=== PATIENT | female | born 2000 | race Caucasian/White ===

== ENCOUNTER 2024-07-10 12:57 | Emergency (ER) | payer BC, SELFPAY ==
--- NOTE | ~2024-07-10 | XR_ITS ---
CLINICAL HISTORY: fall, pain 3 view, pelvis and right hip Comparison: None Findings: No acute fracture or dislocation. No significant arthritic change. The soft tissues are unremarkable. IMPRESSION: No acute findings. This document has been electronically signed by: Nancy Aguero MD on 07/10/2024 19:46:02
--- NOTE | ~2024-07-10 | CT_ITS ---
CLINICAL HISTORY: bucked off horse, landed on low back tailbone CT lumbar spine without contrast Comparison: None Findings: Vertebral alignment is within normal limits. Mild compression fracture of the T12 involving the superior endplate. There is a linear lucency of the posterior sacrum at the level of S3 best visualized on the sagittal view image 40 series 8. Mild angulation of the S3. The coccyx is not included. No significant degenerative change. Visualized abdominal contents unremarkable. IMPRESSION: Mild compression fracture of the T12 vertebral body is likely to be acute. Linear lucency of the posterior sacrum and mild angulation of S3. Acute nondisplaced fracture can not be excluded. The coccyx is not included on the current examination. This document has been electronically signed by: Nancy Aguero MD on 07/10/2024 17:59:08
[2024-07-10 13:06] VITALS: BP 120/80; PULSE 80; O2SAT 100; BMI 18.3
[2024-07-10 13:10] VITALS: BP 123/86; PULSE 63; RESP 18; TEMP 36.6; O2SAT 99
--- NOTE | 2024-07-10 13:17 | ED_ITS ---
HPI - Fall General Chief Complaint: Fall Stated Complaint: fell 4-5ft from horse, lower back to hip pain Time Seen by Provider: 07/10/24 13:53 Source: patient and EMS Mode of arrival: EMS Limitations: no limitations History of Present Illness ED Provider: CHRISTINE RAI PA-C HPI Narrative: 23 year old female presents to the ED today via EMS for evaluation of low back pain after falling off of her horse [employer] in ED. Patient's friend who witnessed accident is at bedside to assist with history. Per patient, she was bucked off of the side of her horse, causing her fall approximately 3-4 feet, landing on her lower back/ tailbone. Denies head strike or LOC. Not on anticoagulation. She reports immediate pain to the area with radiation up her spine. Pain does not radiate to her lower extremities. She was unable to stand or ambulate. The facility called EMS who transferred patient to stretcher. She denies hx of IVDU. No hx of spinal surgery. Denies numbness/tingling/weakness of the LEs, saddle anesthesia, bowel or bladder incontinence or retention. Denies chance of - has IUD in place. Patient presents in cervical collar however denies any neck pain. She did not strike her head. Related Data Previous Rx's ?Medication ?Instructions ?Recorded lidocaine 5 % topical patch 1 patch topical DAILY #15 ea 07/10/24 (Lidoderm) oxycodone 5 mg tablet 5 mg PO Q6H PRN pain #10 tabs 07/10/24 Allergies Allergy/AdvReac Type Severity Reaction Status Date / Time buspirone [From BuSpar] Allergy Unknown Verified 07/10/24 13:08 Review of Systems 2 Review of Systems: Constitutional: No fever, chills, fatigue, night sweats, weight changes ENT/Mouth: No ear pain, hearing loss, nasal congestion, sinus pain, rhinorrhea, sore throat Eyes: No eye pain, swelling, redness, vision changes, discharge Cardio: No chest pain, palpitations, ARMENTA, orthopnea, peripheral edema Pulm: No SOB, cough, sputum, wheezing, dyspnea, hemoptysis GI: No nausea, vomiting, hematemesis, abdominal pain, diarrhea, constipation, hematochezia, melena : No irregular bleeding, dysuria, frequency, urgency, hesitancy, hematuria, flank pain, urinary flow changes, urinary incontinence or retention MSK: No neck pain, joint pain, myalgias, +back pain Skin: No lesions, rashes Neuro: No weakness, numbness, paresthesias, LOC, dizziness, headache Psych: No anxiety/panic, depression, SI/HI, AH/VH All other systems reviewed and are negative. [facility], [facility] Past Medical History Attestation statement: The following information was validated with the patient. Source: old records reviewed and nursing notes reviewed Social History Social History Alcohol intake: current Alcohol intake frequency: a few times a week Smoked in Last 30 Days: Yes Use of substances other than those prescribed or required for medical reasons: No Advance Directives: No Advance Directives Information Provided: Yes Do you have a plan to hurt others: No Plan Patient : No Physical Exam 2 Vital Signs: Vital Signs: Last Vital Signs Temp 98.4 F 07/10/24 21:55 Pulse 92 07/10/24 21:55 Resp 18 07/10/24 21:55 BP 109/72 07/10/24 21:55 Pulse Ox 98 07/10/24 18:25 O2 Del Method Room Air 07/10/24 18:25 BMI result Body Mass Index 18.3 Vital signs stable General: Well appearing, in no acute distress. Skin: Warm, dry, intact. No rashes or lesions. Head: Normocephalic, atraumatic. No raccoon eyes, ca sign. EENT: Hearing is intact b/l. Conjunctiva clear. Sclera is anicteric. PERRLA. EOM intact. Moist mucous membranes.? Neck: Supple without LAD Cardiac: Chest wall symmetric. RRR. Lungs: Normal respiratory effort without accessory muscle use. CTA bilaterally. Abdomen: Soft, non-tender, non-distended. No rebound tenderness or guarding. Back: +pelvis intact. no noted pain w/ anterior/lateral/posterior compression. no overlying skin changes. ttp along midline lumbar spine (T10/T11) without palpable step off. ttp along right lumbar paraspinal musculature without palpable deformity or creptius. minimal lower back pain w/ straight leg raise off bed bilaterally. Ext: Upper and lower extremities atraumatic, without tenderness, deformity, swelling or erythema. Full ROM throughout. Neuro: AOx3. Normal speech. Strength 5/5 intact throughout. No saddle anesthesia. Sensation intact to light touch. NV intact distally. Reflexes 2+ bilaterally. gait not assessed d/t pain. Psych: Appropriate mood and affect. Responds appropriately to questions. Course Course Course Narrative: 1619 -- CBC/ chem unremarkable. hcg negative. she has received tylenol, toradol and lido patch for pain control. CT pending. she is stable at the end of my shift. sign out given to NICHOLAS sims. Reevaluation(s) Reevaluation #1: IMPRESSION: CT lumbar spine Mild compression fracture of the T12 vertebral body is likely to be acute. Linear lucency of the posterior sacrum and mild angulation of S3. Acute nondisplaced fracture can not be excluded. The coccyx is not included on the current examination. XR of the pelvis was obtained to exclude additional pelvic fracture given location of pain which negative 3 view, pelvis and right hip IMPRESSION: No acute findings. Reviewed with patient and father conservative treatment, worrisome signs and symptoms that would warrant re-evaluation emergency department, outpatient follow-up with primary care provider. Ambulatory slow steady gait. Medications Administered Discontinued Medications Generic Name Dose Route Start Last Admin Trade Name Freq PRN Reason Stop Dose Admin Acetaminophen 975 mg 07/10/24 14:19 07/10/24 14:41 Acetaminophen 325 Mg Tablet PO 07/10/24 14:20 975 mg ONCE ONE Administration Acetaminophen 975 mg 07/10/24 21:40 07/10/24 21:48 Acetaminophen 325 Mg Tablet PO 07/10/24 21:41 975 mg ONCE STA Administration Ketorolac Tromethamine 30 mg 07/10/24 15:56 07/10/24 16:32 Ketorolac Tromethamine 30 Mg/Ml Vial IM 07/10/24 15:57 30 mg ONCE ONE Administration Lidocaine 1 patch 07/10/24 14:19 07/10/24 16:32 Lidocaine 4 % Patch Adh..Patch TRANSDERMA 07/10/24 14:20 1 patch ONCE ONE Administration Protocol Oxycodone HCl 5 mg 07/10/24 21:40 07/10/24 21:48 Oxycodone Hcl Immed Release 5 Mg Tablet PO 07/10/24 21:41 5 mg ONCE STA Administration Medical Decision Making Medical Decision Making MDM Narrative: 23 year old female presents to the ED today via EMS for evaluation of low back pain after falling off of her horse [employer] in ED. vital signs are stable. she is nontoxic appearing and in NAD. on exam, pelvis intact. no noted pain w/ anterior/lateral/posterior compression. no overlying skin changes. ttp along midline lumbar spine (T10/T11) without palpable step off. ttp along right lumbar paraspinal musculature without palpable deformity or creptius. minimal lower back pain w/ straight leg raise off bed bilaterally. NV intact distally. gait not assessed at this point d/t patient's pain. Differential includes msk contusion, fracture, subluxation. Unlikely cord compression, cauda equina. Plan for basic labs/ preg, imaging, pain control and re-evalaution. 07/10/2020 at 21:37 hours, Dr. Pieter Lara's attending physician note: Patient is a 23-year-old female who presents emergency department for evaluation of injuries from falling off a horse. 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 The horse reared up on its hind legs causing the patient to fall proximally3- 5 ft off the horse. Patient states she landed on her buttocks. She states she had immediate pain in her back and was unable to get up. Patient was placed on a stretcher and transported to emergency department by ambulance. I did review the SUDHAKAR's notes. I did review the radiologist's impression of the CT scan of her lumbar spine without contrast. Radiologist noted a mild compression fracture of the T12 vertebrae with a linear lucency of the posterior sacrum and angulation of S3. X-rays of the patient's pelvis revealed no acute fractures. Exam: General: Awake, alert in no distress Head: Normocephalic, atraumatic EENT: PERRL, Lids normal, sclera normal, conjunctiva normal, nose normal , ears normal, throat without erythema or exudates Neck: Supple, no adenopathy, no C-spine tenderness Lung: breath sounds symmetric, no wheezing, rales or rhonchi Chest: symmetric movement, nontender Heart: regular rate and rhythm, normal S1, S2 no murmurs or rubs Abdomen: soft, non-tender, nondistended, normal bowel sounds Back: Patient does have some tenderness with the palpation over the lower thoracic and upper lumbar vertebrae, no ecchymosis or discoloration noted in this area, she does have mild to moderate tenderness palpation over her paraspinal muscles in the lower thoracic and lumbar areas. She had negative straight leg raises bilaterally Extremities: no deformities, moves all extremities symmetrically Neuro: Cranial nerves 2-12 are intact Strength: Symmetric in both the upper and lower extremities, patient was able to stand and walk without any difficulty Reflexes: Patient was 2+ patella and ankle reflexes, symmetric Sensory: Patient has normal light touch bilaterally Impression /medical decision making: The patient's findings are consistent with mild compression fracture of the T12 and possible linear fracture of the posterior sacrum and possible S3 fracture. The CT scan did not include the coccyx bones however a coccygeal fracture would be treated no differently than a linear sacral fracture ,therefore coccygeal films were not obtained. The patient's pelvic x-rays did not reveal any acute fracture which is reassuring. Based on her exam I doubt that she has a pelvic fractures since she was able to stand and walk without difficulty. The patient's neurologic exam was unremarkable. She had normal lower extremity strength, sensory exam and normal reflexes. Patient was able to sit on the stretcher, stand and walk without any difficulty. Therefore I believe that her pain is consistent with a mild compression fracture of T12 with no significant injury to the vertebral body, retropulsion or spinal cord contusion. I did discuss my impression and findings with the patient and the patient's father. Patient was advised to take Tylenol and ibuprofen for pain and for pain not relieved by these medications she was prescribed oxycodone. Prior to discharge she was given Tylenol 975 mg orally and oxycodone 5 mg orally for her pain grew. She was also advised to apply ice to her lower back 4 to 6 times a day for at least 15 minutes for the next 3-4 days. I told the patient that the recovery time could be 4-6 weeks and that she should not get back on a hoarse or do exercise until she was medically cared by her PCP. Differential Diagnosis Differential Diagnoses: The differential diagnosis associated with the presentation includes as above. Admission/Observation not indicated. Lab Data MDM Lab Attestation statement: I reviewed the patient's lab results. as above. 07/10/24 14:47 07/10/24 14:47 Labs: Lab Results 07/10/24 Range/Units 14:47 WBC 8.0 (4.8-10.8) X10*3/uL RBC 4.52 (4.20-5.50) X10*6/uL Hgb 14.2 (12.0-16.0) g/dl Hct 41.0 (37.0-47.0) % MCV 90.7 (80.0-98.0) fL MCH 31.4 (27.0-33.0) pg MCHC 34.6 (31.0-35.0) g/dl RDW 11.7 (11.0-16.0) % Plt Count 188 (160-400) X10*3/uL MPV 10.0 (9.4-12.3) fL Immature Gran % (Auto) 1.1 H (0.0-0.4) % Neut % (Auto) 82.6 H (45-73) % Lymph % (Auto) 11.7 L (20-40) % [place] % (Auto) 4.2 (2-11) % Eos % (Auto) 0.2 (0-4) % Baso % (Auto) 0.2 (0-2) % Lymph # (Auto) 0.9 L (1.2-4.9) X10*3/uL [place] # (Auto) 0.3 (0.1-1.2) X10*3/uL Eos # (Auto) 0.0 (0.0-0.4) X10*3/uL Baso # (Auto) 0.0 (0.0-0.2) X10*3/uL Abs Immat Gran (auto) 0.09 H (0.00-0.03) X10*3/uL Absolute Neuts (auto) 6.6 (2.0-8.3) x10*3/uL Absolute Nucleated RBC 0.000 (0.0-0.012) X10*3/uL Nucleated RBC % (auto) 0.0 (0.0-0.2) /100WBC PT 11.6 (10.9-12.4) SEC INR 1.0 (0.9-1.1) Sodium 143 (135-145) mmol/L Potassium 3.5 (3.3-5.1) mmol/L Chloride 108 (96-108) mmol/L Carbon Dioxide 26 (22-29) mmol/L Anion Gap 13 (12-20) BUN 7 L (9-16) mg/dL Creatinine 0.75 (0.5-1.4) mg/dL Estim Creat Clear Calc 93.4 Estimated GFR > 60 Random Glucose 80 (60-115) mg/dL Calcium 9.5 (8.4-10.2) mg/dL Total Bilirubin 0.6 (0.0-1.0) mg/dL AST 34 H (5-31) U/L ALT 20 (0-31) U/L Alkaline Phosphatase 38 L (39-117) U/L Total Protein 7.9 (6.5-8.0) g/dL Albumin 4.6 (3.5-5.0) g/dL Beta HCG, Quant < 2 mIU/mL Independent Interpretation I performed an independent interpretation of an: CT Scan Radiology Impression Discussion of test interpretation with radiology: I have reviewed the radiologist's reading. Radiologist Impression: CT lumbar spine without contrast Comparison: None Findings: Vertebral alignment is within normal limits. Mild compression fracture of the T12 involving the superior endplate. There is a linear lucency of the posterior sacrum at the level of S3 best visualized on the sagittal view image 40 series 8. Mild angulation of the S3. The coccyx is not included. No significant degenerative change. Visualized abdominal contents unremarkable. IMPRESSION: Mild compression fracture of the T12 vertebral body is likely to be acute. Linear lucency of the posterior sacrum and mild angulation of S3. Acute nondisplaced fracture can not be excluded. The coccyx is not included on the current examination. This document has been electronically signed by: Nancy Aguero MD on 07/10/2024 17:59:08 3 view, pelvis and right hip Comparison: None Findings: No acute fracture or dislocation. No significant arthritic change. The soft tissues are unremarkable. IMPRESSION: No acute findings. This document has been electronically signed by: Nancy Aguero MD on 07/10/2024 19:46:02 Independent Historian Clinical information obtained from an independent historian. History obtained from or confirmed by: Parent (dad) External Record Review External record reviewed: Inpatient record Prescription Management I considered prescription management with: Pain Medication Social Determinants Patient?s care significantly limited by Social Determinants of Health including: Other Social Determinant of Health Critical Care Time Critical Care Time Critical Care Time: No Discharge Plan Discharge Clinical Impression: Compression fracture of thoracic vertebra, Closed sacral fracture Patient Disposition: Home, Self-Care Instructions: Vertebral Compression Fracture (ED), Sacral Fracture (ED) Additional Instructions: As discussed, imaging today reveals that you have a T12 vertebrae compression fracture and an S3 sacral fracture. X-ray of the pelvis did not reveal any pelvic fractures. You can take ibuprofen 200 mg, 3 tablets (600mg) every 6-8 hours as needed for pain, in addition to Tylenol 500 mg, 2 tablets (1,000mg) every 4-6 hours as needed for pain, but not to exceed 3 doses daily (3,000mg).? For pain unrelieved by either of the above, I have sent a short prescription for oxycodone to the pharmacy. This is a narcotic medication it does have addictive potential to is, use only as needed for severe pain unrelieved by the above. It may make you drowsy. You should not drive, drink alcohol, or work while taking this medication. You may apply Lidoderm patches as well to area of pain it may be left on for 12 hours but she would be remove for 12 hours to prevent skin irritation Please contact your primary care provider to arrange for a follow-up visit. You may return to emergency department new or worsening symptoms or concerns which includes but is not limited to numbness and tingling of the lower extremities, legs feeling weak, having accidents where your urinating or moving your bowels without realizing that it is occurring, worsening pain not managed at home. It is important that you rest over the next few days, avoid any physical activity, you will want to purchase an [id number] donut pillow, typically it is a cushioned or air-filled pillow with the center cut out with the appearance of a doughnut to take the pressure off of your sacrum while you are sitting. You may require physical therapy after the next week if you continue to pain. Prescriptions: New lidocaine [Lidoderm] 5 % adhesive patch,medicated 1 patch topical DAILY Qty: 15 0RF Rx Instructions: leave on most painful area for up to 12 hrs oxycodone 5 mg tablet 5 mg PO Q6H PRN (Reason: pain) Qty: 10 0RF Rx Instructions: Partial Fill upon patient request. Referrals: Physician,Unknown J [Primary Care Provider] - Interventions: ED Discharge Assessment Last Done: 07/10/24 21:55 Discharge Date/Time: 07/10/24 21:56 Print Language: Romansh
[2024-07-10] MEDS: Acetaminophen 325 MG TABLET 975 MG PO ×2 (14:41→21:48)
--- OUTSIDE RECORDS SUMMARY | 2024-07-10 14:41 | XMS_ITS | Encounter Summary ---
Author Organization [facility] Address [phone] [address] [place] [address] Care Team Providers Care Shelf Filler Name Role Phone Karen Hallman MD Primary Care Provider [phone] Omar Floyd NP Primary Care Provide r Encounter Details Date Type Department Care Team (Latest Contact Info) Description 03/05/2019 Ancillary Orders Virtual Department [address] [place] [address] Karen Mg NP [address] [facility] [address] [place] [address] Abdominal pain, unspecified abdominal location; Vomiting, intractability of vomiting not specified, presence of nausea not specified, unspecified vomiting type Social History Tobacco Use Types Packs/Day Years Used Date Smoking Tobacco: Never Assessed Sex and Gender Information Value Date Recorded Sex Assigned at Female 11/26/2022 1:13 PM EDT Gender Identity Female 11/26/2022 1:13 PM EDT Sexual Orientation Don't know 05/18/2024 1: 31 PM EST Sexual Orientation Straight 05/18/2024 1: 31 PM EST documented as of this encounter Plan of Treatment Not on file documented as of this encounter Results * US ABDOMEN LIMITED APPENDIX (ADULT) (03/05/2019 10:32 AM EDT) Anatomical Region Laterality Modality Abdomen Ultrasound 03/05/2019 10:3 6 AM EDT Impressions 03/05/2019 10:41 AM EDT No explanation for right lower quadrant pain. The appendix is not visualized. No secondary signs of acute appendicitis. Clinical follow-up recommended. POS - [id number] Narrative 03/05/2019 10:41 AM EDT HISTORY: COMPARISON: FINDINGS: A limited abdominal ultrasound of the right lower quadrant is performed. No evidence of masses or focal fluid collections. The appendix is not visualized. The right ovary is small and normal in echogenicity measuring 2.7 cm x 2.07 m x 1.6 cm. A few tiny follicles are visible within the ovary. Duplex Doppler scanning of the ovary demonstrates normal arterial and venous blood flow. Procedure Note Kennedy Samano MD - 03/05/2019 HISTORY: COMPARISON: FINDINGS: A limited abdominal ultrasound of the right lower quadrant is performed. No evidence of masses or focal fluid collections. The appendix is notvisualized. The right ovary is small and normal in echogenicity measuring2.7 cm x 2.07 m x 1.6 cm. A few tiny follicles are visible within theovary. Duplex Doppler scanning of the ovary demonstrates normal arterialand venous blood flow. IMPRESSION: No explanation for right lower quadrant pain. The appendix is notvisualized. No secondary signs of acute appendicitis. Clinical follow-uprecommended. POS - [id number] Karen Mg NP IMG US ABDOMEN documented in this encounter Visit Diagnoses Diagnosis Abdominal pain, unspecified abdominal location Vomiting, intractability of vomiting not specified, presence of nausea not specified, unspecified vomiting type Abdominal pain, unspecified abdominal location Vomiting, intractability of vomiting not specified, presence of nausea not specified, unspecified vomiting type documented in this encounter Care Teams Shelf Filler Relationship Specialty Start Date End Date Karen Hallman MD [address] [place] [id number] PCP - General Pediatrics 03/05/19 03/21/24 Omar Floyd NP [address] [place] [id number] PCP - General Nurse Practitioner 03/22/24 documented as of this encounter Additional Source Comments The information contained in this document represents components of the legal health record. It is not the complete legal health record.[facility]
--- OUTSIDE RECORDS SUMMARY | 2024-07-10 14:41 | XMS_ITS | Encounter Summary ---
Author Organization [facility] Address [phone] [place] [id number] Care Team Providers Care Inside Sales Account Representative Name Role Phone Omar Floyd NP Primary Care Provide r Encounter Details Date Type Department Care Team (Late st Contact Info) Description 06/12/2024 Telephone [facility] [address] [place] [address] Lesli Martinez MD [address] [facility], [address] [place] [address] [email or web address] Social History Tobacco Use Types Packs/Day Years Used Date Smoking Tobacco: Never Smokeless Tobacco: Never Alcohol Use Standard Drinks/Week Comments Yes 0 (1 standard drink = 0.6 oz pur e alcohol) Education Answer Date Recorded Are you interested in more education? Not on heydi e 09/24/2022 Are you concerned about learning? Not on file 09/24/2022 No 09/24/2022 No 09/24/2022 Digital Access Answer Date Recorded No 10/22/2022 No 10/22/2022 Reliable internet access at home? Not on file 10/22/2022 Device with a working camera? Not on file Sex and Gender Information Value Date Recorded Sex Assigned at Female 11/26/2022 1:13 PM EDT Gender Identity Female 11/26/2022 1:13 PM EDT Sexual Orientation Don't know 05/18/2024 1: 31 PM EST Sexual Orientation Straight 05/18/2024 1: 31 PM EST documented as of this encounter Progress Notes * Eloina Livingston - 06/13/2024 2:37 PM EST Spoke w pt regarding scheduling their US and FUV w RP. 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 * Cortney Carbone - 06/12/2024 12:04 PM EST Duplicate encounter TE in Results Basket already Pt is on the U/[place] list * Lesli Martinez MD - 06/12/2024 12:02 PM EST Please contact to schedule the US that was ordered on Apr, thanks lesli Mota documented in this encounter Plan of Treatment Not on file documented as of this encounter Visit Diagnoses Not on filedocumented in this encounter Care Teams Inside Sales Account Representative Relationship Specialty Start Date End Date Omar Floyd NP [address] [place] [id number] PCP - General Nurse Practitioner 03/22/24 documented as of this encounter Additional Source Comments The information contained in this document represents components of the legal health record. It is not the complete legal health record.[facility]
--- OUTSIDE RECORDS SUMMARY | 2024-07-10 14:41 | XMS_ITS | Encounter Summary ---
Author Organization [facility] Address [phone] [place] [address] Care Team Providers Care Videogame Tester Name Role Phone Karen Hallman MD Primary Care Provider [phone] Omar Floyd NP Primary Care Provide r Encounter Details Date Type Department Care Team (Latest Contact Info) Description 03/05/2019 Ancillary Orders Virtual Department [address] [place] [address] Karen Mg, NICHOLAS [address] [facility] [address] [place] [address] Abdominal pain, unspecified abdominal location; Vomiting, intractability [...] documented as of this encounter Visit Diagnoses Diagnosis Abdominal pain, unspecified abdominal location Vomiting, intractability of vomiting not specified, presence of nausea not specified, unspecified vomiting type documented in this encounter Care Teams Videogame Tester Relationship Specialty Start Date End Date Karen Hallman MD [address] [place] [address] PCP - General Pediatrics 03/05/19 03/21/24 Omar Floyd NP [address] [place] [address] PCP - General Nurse Practitioner 03/22/24 documented as of this encounter Additional Source Comments The information contained in this document represents components of the legal health record. It is not the complete legal health record.[facility]
--- OUTSIDE RECORDS SUMMARY | 2024-07-10 14:41 | XMS_ITS | Clinical Summary ---
Author Organization [facility] Address [address] [place] [phone] Phone Care Team Providers Care Regulatory Compliance Coordinator Name Role Phone Unavailable Primary Care Provider Unavailabl e Allergies Active Allergy Reactions Criticality Noted Date Comments Buspirone Hives,Itching,Rash Low 01/22/2021 Drospirenone-Ethinyl Estradiol Hives,Itching,Rash,Swellin g Low 11/27/2022 Medications norgestimate-eth inyl estradiol 0.25-35 MG-MCG per tablet Take 1 tablet by mouth daily. 12/01/2022 Active buPROPion XL 300 MG 24 hr tabletIndication s:Depression, unspecified depression type Take 1 tablet (300 mg total) by mouth daily. 90 tablet 1 09/02/2023 Active FLUoxetine 10 MG capsuleIndicatio ns:Depression, unspecified depression type Take 1 capsule (10 mg total) by mouth once daily. 90 capsule 1 09/02/2023 Active buPROPion 75 MG tabletIndication s:Depression, unspecified depression type Take 1 tablet (75 mg total) by mouth 2 (two) times a day. 60 tablet 09/06/2023 Active Active Problems Problem Noted Date Diagnosed Date Depression, unspecified 02/18/2023 Assessment & Plan (09/02/2023 2:03 PM EDT): Reordered FLuoxetine 10mg capsule daily and bupropion XL 300mg daily. Will start with Bupropion for a week or so before restarting fluoxetine. She would like a longer period to assess if helpful. Plan on f/u at her E in January. Assessment & Plan (05/16/2023 11:28 AM EST): Given the persistent moderate depression despite Bupropion 300mg XL daily, will add Fluoxetine 10mg daily. She would like to continue the Bupropion. Also recommended meeting with Lynnette for therapy and possible bridge. She will schedule. Assessment & Plan (03/25/2023 10:33 AM EDT): On Bupropion XL 150mg daily with no change in symptoms Also has not tried to find a therapist. Will increase dose to Bupropion XL 300mg daily which was her previous effective dose. Will have Piper send info about how to find a therapist. Regroup in 6-8 weeks. Assessment & Plan (02/18/2023 2:08 PM EDT): Symptoms of depression have returned after stopping Bupropion last September. She feels when she has alone time she is more likely to feel depressed. Denies SI. She thinks she feels better on medication but has a hard time being objective about it. Has had therapy in the past but had variable response to it. She tried [facility] for a while but could not find a good match. She does not feel it is necessary at this time. We did discuss check in with [facility] if needed. Dysuria-frequency syndrome 01/28/2023 Assessment & Plan (02/18/2023 2:08 PM EDT): Less problematic. Has been taking Uro Calm when needed which is helpful. Will schedule f/u with urology. Assessment & Plan (01/28/2023 1:41 PM EDT): We discussed that this does not seem to be consistent with recurrent UTIs but are more likely related to irritation or inflammation with sexual activity or possibly bladder spasms. Recommend referral to [facility]. At this time, will increase fluid intake and try to urinate every 3 hours but no more frequently. Will also try taking pyridium for the 2 days following SA. Will also consider if positions or current lubrication are causing symptoms. Hemorrhoids 03/02/2021 Assessment & Plan (02/18/2023 2:08 PM EDT): Smaller and less bothersome than previous. TMJ tenderness, left 12/11/2020 Assessment & Plan (02/18/2023 2:08 PM EDT): Intermittent symptoms but managing ok. Assessment & Plan (12/11/2020 2:00 PM EDT): Discussed TMJ pain. Discussed treatment typically with symptomatic treatment for pain and reduction in chewing solid foods including ice or gum. She is interested in therapy for this since the pain can be severe at times. Will refer to PT. Consider eval by oral surgeon. Resolved Problems Problem Noted Date Diagnosed Date Resolved Date Acute cystitis without hematuria 03/27/2022 01/28/2023 Overview (03/27/2022): 03/20 >100,000 E.coli. Pansensitive. Treated with nitrofurantoin for 5 days. Assessment & Plan (11/22/2022 2:16 PM EDT): Drink plenty of water. Avoid holding urine. Call for increase in pain, difficulty urinating, blood in urine, fever, back pain, or if no improvement in 2 days. Need for case management follow-up 03/25/2020 07/14/2020 Assessment & Plan (03/25/2020 1:37 PM EDT): Plan for exam, VS, measurements and age appropriate screenings (inlcuding hearing, tympanogram, and urine STI screen) when she returns next month for Depo. Plan for flu shot then as well. Car sickness 03/25/2020 07/14/2020 Assessment & Plan (04/16/2020 1:47 PM EST): Nausea with car ride to school in the mornings. Sometimes get nausea before, in anticipation of car sickness. Possible correlation to her anxiety, which I think is likely. Lacks vomiting, appetite loss, etc. Recommended avoidance of reading and phone in the car. Recommended she speak with Dr. Pennington, as she feels that overall her anxiety management could be better. Awaiting labs for fatigue, will check with Dr. Baker to see if anything should be added on. Will follow-up if no improvement or if symptoms worsen. Assessment & Plan (03/25/2020 1:40 PM EDT): Doing better now. Reviewed some home and OTC measures to help (avoid screens, peppermint gum, OTC medications, etc). Eustachian tube dysfunction, right 05/14/2019 12/11/2020 Assessment & Plan (04/16/2020 1:48 PM EST): Continued popping and muffled sensation. Normal hearing, tympanogram and exam. Will refer to ENT for their input given ongoing complaint. Assessment & Plan (03/24/2020 4:58 PM EDT): Continues to feel some pressure and popping sensations, chronic. Will check exam, hearing test and tympanogram when she comes for her next Depo dose. Consider ENT referral. Assessment & Plan (05/14/2019 1:49 PM EST): Reassured no active infection. Explained natural history. Increase fluids, consider nasal decongestant. Recheck if fever or ear pain is present Fatigue 08/28/2018 07/14/2020 Assessment & Plan (03/24/2020 5:00 PM EDT): Labs were ordered last year, not drawn. Does still feel fatigued even after long night's sleep. Doesn't seem correlated with her mood. Will reorder labs. Assessment & Plan (08/28/2018 6:01 PM EDT): Screening labs ordered. Will notify with results Current moderate episode of major depressive disorder without prior episode 07/24/2018 Assessment & Plan (07/14/2020 10:28 AM EST): Did not feel therapy was helpful or meds. Stopped both and symptoms have largely been resolved. Assessment & Plan (03/25/2020 1:30 PM EDT): Followed by Dr. Pennington. Managed with Wellbutrin and Adderall for ADHD. No therapy, not helpful in the past. Denies safety concerns. Continue management per psychiatry. Assessment & Plan (03/22/2019 5:09 PM EDT): I do not think she has made any improvement. Still difficulty sleeping, feels depressed. I have recommended changing medication. She would like to see a psychiatrist. Reviewed with father, I will have [facility] reach out to the family for assistance in scheduling. Will continue on Fluoxetine for now Assessment & Plan (10/09/2018 6:23 PM EDT): Reviewed options. We decided to have her see [facility] for an evaluation and a few sessions initially. Will keep Fluoxetine the same for now. Reassess in 1 month. Recommend making an appointment to get on the waiting list for a psychiatrist Assessment & Plan (08/28/2018 6:00 PM EDT): Recommend icnreasing fluoxetine to 20 mg. Regroup in 6 weeks. Would do screening forms at that visit Assessment & Plan (07/24/2018 3:19 PM EST): Reviewed with patient and mother. PHQ-9 is positive. I agree with starting antidepressants. Recommend initiating Fluoxetine. 10 mg. Will start with 5mg daily for 1 week. If no side effects increase to 10mg daily. [facility] [place] followup in 1 week. OV in 1 month. I recommend seeing Kellie Jones weekly for therapy Chronic pain of both knees 10/17/2017 0 07/14/2020 Assessment & Plan (07/14/2020 9:35 AM EST): Has exercises from PT which helps. Not doing sport currently. Assessment & Plan (03/22/2019 5:08 PM EDT): Recommend HEP. Handout given with exercises. Followup if not improving Assessment & Plan (10/17/2017 3:58 PM EDT): Recommend referral to PT once season is over. Continue to ice after games and work on good stretching techniques Generalized abdominal pain 03/14/2017 0 10/17/2017 Assessment & Plan (03/14/2017 2:49 PM EDT): Reviewed with patient and mother. Entirely normal exam. History is consistent with increased anxiety. Reviewed insuring adequate sleep, daily exercise and meeting with school counselor to address anxiety. She should followup with any worsening of symptoms. Migraine with aura 2013 Assessment & Plan (03/22/2019 5:07 PM EDT): No current issues noted Encounters Date Type Department Care Team Description 06/05/2024 Refill [facility], [facility] [address] [place] [address] Dara Wilhelm MD Depression, unspecified depression type from Last 3 Months Immunizations Immunization Administration Dates Next Due DTaP 5 11/14/2006, 4,05/10/2003,03/13,01/04/2003 HPV Vaccine 9 Valent 10/17/2017,05/26/2016 Hep A, ped/adol 03/22/2019,10/17/2017 Hep B, ped/adol 08/12/2003,2002,2002 Hib (HbOC) 02/12/2004, 3,03/13/2003,01/04 IPV 11/14/2006, 4,03/13/2003,01/04 Influenza, injectable, quadr ivalent, preservative free 04/11/2020,03/22/2019 MMR 02/12/2004 MMRV 11/14/2006 Meningococcal Conj (Menactra) MCV4P 03/22/2019,1 Pneumococcal Conjugate 05/10/2003,03/13/2003,12/2002 Tdap 03/04/2015 Varicella 11/12/2003 Social History Tobacco Use Types Packs/Day Years Used Date Smoking Tobacco: Passive Smo ke Exposure - Never Smoker Smokeless Tobacco: Never Hunger/Food Answer Date Recorded In the last 12 months, did y ou or your family ever eat less than you felt you should because there wasn't enough money for food? No 02/18/2023 Stable Housing Answer Date Recorded Are you worried that in the next 2 months you may not have stable housing? No 02/18/2023 Transportation Concerns Answer Date Rec orded In the last 12 months, have you or your family ever had to go without healthcare because you didn't have a way to get there? No 02/18/2023 Hazards in Home Answer Date Recorded Think about the place you li ve. Do you have problems with any of the following? Pests (mice or roaches), mold, no/not working smoke detectors, water leaks, no window guards. No 2022 Financing Utilities Answer Date Recorde d In the last 12 months, has t he electric, gas, oil, or water company threatened to shut off your services in your home? No 02/18/2023 Safety at Home Answer Date Recorded Are you or your family worried about feeling saf e in your home? No 02/18/2023 Outside Support Answer Date Recorded Do you feel that you need mo re support from other people or programs to help you care for yourself or your family? No 02/18/2023 Understanding Health Concerns Answer Da te Recorded Do you need help understandi ng your or your child's healthcare needs (diagnosis, medications, plan, etc.)? No 02/18/2023 Financing Health Concerns Answer Date R ecorded In the last 12 months, was t here a time when your child needed to see a doctor or get medications or supplies but could not because of cost? No 02/18/2023 Missing School or Work Answer Date Kyle rded Did you or your child miss s chool or work because of a health problem that could have been avoided? Yes 02/18/2023 Comments No Sex and Gender Information Value Date Recorded Sex Assigned at Female 03/24/2020 4:44 PM EDT Legal Sex Female 4:10 PM EST Gender Identity Female 03/24/2020 4:44 PM EDT Sexual Orientation Not on file Last Filed Vital Signs Vital Sign Reading Time Taken Comments Blood Pressure 110/66 02/18/2023 10:32 AM EDT Pulse 88 02/18/2023 10:32 AM EDT Temperature 36.8 ??C (98.2 ??F) 01/28/2023 11:07 AM E DT Respiratory Rate 22 12/26/2020 2:43 PM EDT Oxygen Saturation 98% 05/18/2021 10:23 AM EST Inhaled Oxygen Concentration - - Weight 54.4 kg (120 lb) 02/18/2023 10:32 AM EDT Height 164.6 cm (5' 4.8 ) 02/18/2023 10:32 AM ED T Body Mass Index 20.09 02/18/2023 10:32 AM EDT Plan of Treatment Health Maintenance Due Date Last Done Comments Men B Vaccine (1 of 2 - Standard) 2018 Influenza Vaccines (#1) 2023 04/11/2020, 03/22 COVID-19 Vaccine ( season) 2024 06/10/2022, 06/04/2021, 10/15/2020, Additional history exists DTaP,Tdap,and Td Vaccines (7 - Td or Tdap) 03/04/2025 03/04/2015, 11/14/2006, 05/13/2004, Additional history exists Pneumococcal Vaccine Aged Out 05/10/2003, 03/13/2003, 01/04/2003 No longer eligible based on patient's age to complete this topic Hepatitis B Vaccines Completed 08/12/2003, 2002, 2002 HIB Vaccines Completed 02/12/2004, 04/29, 03/13/2003, Additional history exists IPV Vaccines Completed 11/14/2006, 10/28, 03/13/2003, Additional history exists MMR Vaccines Completed 11/14/2006, 02/12/2004 Varicella Vaccines Completed 11/14/2006, 11/12/2003 HPV Vaccines Completed 10/17/2017, 05/26/2016 Hepatitis A Vaccines Completed 03/22/2019, 10/18/19 18 Meningococcal Vaccine Completed 03/22/2019, 015 Procedures * Due to [place] Cut[place] law, this organization might not be sharing sensitive test results. Procedure Name Priority Date/Time Associated Diagnosis Comments CHLAMYDIA GC AMP PROBE Routine 11/25/2022 4:23 PM EDT Dysuria from Last 3 Months or Most Recently Relevant to Health Maintenance Results * Due to [place] Cut[place] law, this organization might not be sharing sensitive test results. * CHLAMYDIA GC AMP PROBE (11/25/2022 4:23 PM EDT) Chlamydia Trachomatis, Amplified NEGATIVE (NEG) [facility] Comment: No Chlamydia Trachomatis RNA detected in this patient's sample ? (REFERENCE RANGE/NORMAL VALUE: NOT DETECTED) ? Note: This test uses line maintainer- mediated amplification method to detect rRNA from C. Trachomatis N.GONORRHOEAE AMP PROBE NEGATIVE (NEG) [facility] Comment: No Neisseria Gonorrhoeae RNA detected in this patient's sample ? (REFERENCE RANGE/NORMAL VALUE: NOT DETECTED) ? NOTE: This test uses line maintainer-mediated amplification method to detect rRNA from N.Gonorrhoeae. A negative result does not preclude infection. In the case of a negative urine result, testing of an endocervical(female) or urethral (male) specimen is recommended if there is high clinical suspicion of infection. Due to very high sensitivity of Nucleic Acid Amplification Test, false positive results may occur. Therefore, specimen handling is extremely important. In patients in whom the disease is unlikely, additional sample for testing should be considered after an initial positive result. The performance characteristics of this test have not been evaluated in children. The Aptima Combo2 assay is not intended for the evaluation of suspected sexual abuse or for other medico-legal indications. The ordering provider should assess if the patient had consensual sex without risk of sexual abuse. Consult the [facility] if needed. Contact phone number . Therapeutic failure or success cannot be determined with the Aptima Combo2 assay since nucleic acid may persist following appropriate antimicrobial therapy. The Centers for Disease Control and Prevention (CDC) recommends confirmatory retesting using culture or a different nucleic acid amplification test when positive results occur, if indicated. CHLAM/GC AMP PROBE SPEC TYPE VAGINAL SPECIMEN [facility] Comment: Testing performed or reported by [facility], a Service of [facility], [facility] [place] [address] Ramos Mena MD, Internal Medicine Nurse Practitioner IA# [id number] 11/25/2022 4:23 PM EDT 11/25/2022 11:03 PM EDT Mehran Amos MD LAB MICROBIOLOGY - GENERAL ORDER MANOHAR Final Result [facility] from Last 3 Months or Most Recently Relevant to Health Maintenance
--- OUTSIDE RECORDS SUMMARY | 2024-07-10 14:41 | XMS_ITS | Clinical Summary ---
Author Organization [facility] Address [phone] [place] [address] Care Team Providers Care Professor Of Business Name Role Phone Omar Floyd NP Primary Care Provide r Allergies Active Allergy Reactions Criticality Noted Date Comments Buspirone Hives,Rash Low 01/22/2021 Drospirenone-Ethinyl Estradiol Hives,Itching,Rash,Swellin g Low 11/26/2022 Medications Medication Sig Dispensed Refills Start Date End Date Status buPROPion (WELLBUTRIN XL) 300 MG ER 24 hr tablet Take 300 mg by mouth daily. Active LORazepam (ATIVAN) 1 MG tablet Take 1 tablet (1 mg total) by mouth once for 1 dose. Take 30 minutes prior to procedure. 1 tablet 02/22/2024 Active Hospital, Clinic, or Other Facility Administered Medication Ordered Dose Route Frequency Start Date End Date Status levonorgestreL (MIRENA) 21 mcg/24 hr (8 yrs) 52 mg intrauterine device 1 each 1 each Utrn Every 8 years 03/09/2024 Active Active Problems Problem Noted Date Diagnosed Date Vaginal odor 03/22/2024 Assessment & Plan (03/22/2024 6:27 PM EDT): Suspect BV given pos whiff; unable to check pH due to blood Treat with oral metronidazole given recent IUD insertion Contraceptive management 02/03/2024 Assessment & Plan (02/03/2024 3:04 PM EDT): Patient reports no personal history or current breast/ovarian cancer, VTE or thrombophilic disorders, stroke, heart disease, severe uncontrolled hypertension, liver tumors, migraines with aura, smoking (> 1/2 ppd) and over age of 35. Patient has no absolute contraindications to estrogen containing contraceptives. Patient counseled regarding tiered effectiveness of contraceptive methods: Tier 1 methods (sterilization, nonhormonal IUD, hormonal IUD, and contraceptive implant) with less than 1% rate, Tier 2 methods (vaginal ring, oral contraceptive pills, contraceptive patch, depo provera injection) with a 5-10% rate, and Tier 3 methods (barrier methods and spermicides or withdrawal) with a >10% rate. Patient counseled regarding effectiveness, duration of use, route of method/frequency of use, and changes in menstrual bleeding pattern with all types of contraceptive methods. Patient desires LNG-IUD. Reviewed pain management options including NSAIDs/Tylenol scheduled in the 24 hours prior to insertion, Ativan/Oxycodone 30 minutes prior to procedure, heating pad and paracervical block. Patient would like all of these options and confirms she will have a ride to and from her insertion appointment. Rx sent to pharmacy. Vaginitis and vulvovaginitis 11/29/2022 Assessment & Plan (11/29/2022 4:20 PM EDT): Wet prep +yeast, negative clue cells, negative trichomonas Vaginal culture collected Patient reports recent negative GC/CT Recently treated for UTI with antibiotics, denies urinary symptoms Rx for Diflucan sent Return to office as needed Encounter for initial prescription of contracept ravi pills 11/29/2022 Assessment & Plan (11/29/2022 4:18 PM EDT): Patient reports no personal history or current breast/ovarian cancer, VTE or thrombophilic disorders, stroke, heart disease, severe uncontrolled hypertension, liver tumors, migraines with aura, smoking (> 1/2 ppd) and over age of 37. Patient has no absolute contraindications to estrogen containing contraceptives. Patient counseled regarding tiered effectiveness of contraceptive methods: Tier 1 methods (sterilization, nonhormonal IUD, hormonal IUD, and contraceptive implant) with less than 1% rate, Tier 2 methods (vaginal ring, oral contraceptive pills, contraceptive patch, depo provera injection) with a 5-10% rate, and Tier 3 methods (barrier methods and spermicides or withdrawal) with a >10% rate. Patient counseled regarding effectiveness, duration of use, route of method/frequency of use, and changes in menstrual bleeding pattern with all types of contraceptive methods. Patient desires OCPs. Rx sent to pharmacy. Dyspareunia in female 01/22/2021 Overview (08/13/2021): Has some improvement with pelvic floor PT. No signs or sxs suggestive of LS, LP or other dermatitis, no restriction at hymen; no signs suggestive or vestibulitis, and no sxs to suggest pure vulvodynia Assessment & Plan (08/13/2021 6:13 PM EDT): I agree with dilators, discussed use; I suggested and sent rx for lidocaine to use topically approx 15-30 minutes before using dilators In the 2 small areas of tenderness, I recommend use of topical neuromodulator ointment, 2% each baclofen, amitrip and gabepentin, and I phoned that in. if not improved, recommend consult with vulvar specialist Encounters Date Type Department Care Team Description 06/12/2024 Telephone [facility] [address] [place] [address] Lotus Martinez MD 05/18/2024 2:15 PM EST - 05/18/2024 11:59 PM [facility] Hospital Encounter [facility], [address] [address] Lotus Martinez MD Discharge Disposition: Home or Self Care 05/18/2024 Orders Only [facility] [address] [place] [address] Lotus Martinez MD Right ovarian cyst (Primary Dx); Cyst of ovary, unspecified laterality from Last 3 Months Immunizations Name Administration Dates Next Due COVID-19 (Pre-03/21) Pfizer Vaccine, mRNA, PF 10/15/2020,09/22/2020 Dtap, 5 Pertussis Antigens 11/14/2006,,05/10/2003,03/13,01/04/2003 HPV9 10/17/2017,05/26/2016 Hepatitis A, ped/adol, 2 dose 03/22/2019, 018 Hepatitis B 08/12/2003,2002,2002 Hib,HbOC 02/12/2004, 3,03/13/2003,01/04 IPV 11/14/2006, 4,03/13/2003,01/04 Influenza Quadrivalent Prese rvative Free IM 04/11/2020,03/22/2019 MMR 02/12/2004 MMRV 11/14/2006 Meningococcal MCV4P 03/22/2019,03/04/2015 Pneumococcal conjugate, PCV 7 05/10/2003, 003,01/04/2003 Tdap 03/04/2015 Varicella 11/12/2003 Family History Medical History Relation Comments No Known Problems Father No Known Problems Mother Relation Status Comments Father Alive Maternal Grandfather Maternal Grandmother Mother Alive Paternal Grandfather Paternal Grandmother Sister Alive Social History Tobacco Use Types Packs/Day Years Used Date Smoking Tobacco: Never Smokeless Tobacco: Never Tobacco Cessation:Counseling Given: Not Answered Alcohol Use Standard Drinks/Week Comments Yes 0 [...] Orientation Straight 05/18/2024 1: 31 PM EST Last Filed Vital Signs Vital Sign Reading Time Taken Comments Blood Pressure 130/76 03/22/2024 3:41 PM EDT Pulse 68 01/01/2023 9:22 AM EDT Temperature 36.4 ??C (97.6 ??F) 01/01/2023 9:22 AM ED T Respiratory Rate 18 01/01/2023 9:22 AM EDT Oxygen Saturation 97% 01/01/2023 9:22 AM EDT Inhaled Oxygen Concentration - - Weight 53.3 kg (117 lb 6.4 oz) 03/22/2024 3:41 P M EDT Height 165.1 cm (5' 5 ) 03/09/2024 4:00 PM EDT Body Mass Index 19.54 03/09/2024 4:00 PM EDT Plan of Treatment Health Maintenance Due Date Last Done Comments DEPRESSION SCREENING 2014 ADOLESCENT UNIVERSAL LIPID SCREENING 11/09/2019 HEPATITIS B SCREENING 2020 HEPATITIS C SCREENING 2020 HIV ONE-TIME SCREENING (18-65 YEARS) 2020 PAP SMEAR 11/09/2023 INFLUENZA VACCINE (#1) 2023 04/11/2020, 2018 COVID-19 VACCINE ( season) 2024 06/10/2022, 06/04/2021, 10/15/2020, Additional history exists Adult Td,Tdap Booster 03/04/2025 03/04/2015 COMBINED DTaP,Tdap,Td (7 - Td or Tdap) 03/04/2025 03/04/2015, 11/14/2006, 05/13/2004, Additional history exists CHLAMYDIA SCREENING 03/22/2025 03/22/2024 SMOKING Hx and SMOKELESS TOBACCO SCREENING 03/22/2025 03/22/2024 IUD 03/09/2032 03/09/2024 PNEUMOCOCCAL VACCINES (0-49 years) Aged Out 05/10/2003, 03/13/2003, 01/04/2003 No longer eligible based on patient's age to complete this topic HEPATITIS B VACCINES Completed 08/12/2003, 2002, 2002 HIB VACCINES Completed 02/12/2004, 04/29, 03/13/2003, Additional history exists MMR VACCINES Completed 11/14/2006, 02/12/2004 HPV VACCINES Completed 10/17/2017, 05/26/2016 HEPATITIS A VACCINES Completed 03/22/2019, 10/18/19 18 MENINGOCOCCAL VACCINES (ACWY) Completed 03/22/2019, 03/04/2015 Medical Devices Implanted Type Area [employer] Device Identifier Shelf Expiration Date Model / Serial / Lot Iud Implanted:03/2024 (Quantity not on file) Intrauterine Device Procedures Procedure Name Priority Date/Time Associated Diagnosis Comments US PELVIS TRANSVAGINAL ONLY Routine 05/18/2024 3:08 PM EST Intrauterine contraceptive device threads lost, initial encounter CHLAMYDIA TRACHOMATIS AND NEISSERIA GONORRHOEAE NUCLEIC ACID DETECTION Routine 03/22/2024 4:23 PM EDT Screen for STD (sexually transmitted disease) from Last 3 Months or Most Recently Relevant to Health Maintenance Results * US PELVIS TRANSVAGINAL ONLY (05/18/2024 3:08 PM EST) Anatomical Region Laterality Modality Pelvis, Uterus/Adnexa Ultrasound 05/18/2024 3:59 PM EST Impressions 05/18/2024 4:02 PM EST 1. ??Complex cystic lesion in the right ovary measuring up to 4.8 cm with internal echoes without internal vascularity. The differential is hemorrhagic cyst, but other etiologies are possible. Gynecology management and follow-up recommended. Short- term follow-up ultrasound in 8-12 weeks or as clinically appropriate is recommended. Pelvic MRI could also be considered. 2. ??The left ovary is not imaged as the study was stopped early due to patient discomfort. 3. ??The IUD is appropriately positioned. A clinically significant result was initiated on 05/18/2024 4:02 PM, Message ID [id number]. Narrative 05/18/2024 4:02 PM EST US PELVIS TRANSVAGINAL ONLY Referring clinician's provided indication for this examination in Epic: Unable To Locate IUD String TECHNIQUE: Pelvic Ultrasound Transvaginal performed for detailed imaging of the endometrium and/or adnexa. COMPARISON: None available FINDINGS: Uterus: Size: 6.3 x 3.0 x 3.9 cm. Anteverted ??Myometrium: Homogeneous Endometrium: Homogeneous Thickness: 6 mm. IUD is appropriately positioned Right adnexa: Ovary: The right ovary measures 5.4 x 4.0 x 5.0 cm, containing a complex cystic lesion measuring 4.8 x 3.7 x 4.5 cm. Left adnexa: Ovary: The left ovary is not visualized. The study was terminated early due to patient discomfort. Free fluid: No significant free fluid. Procedure Note Mehran Albarado MD - 05/18/2024 US PELVIS TRANSVAGINAL ONLY Referring clinician's provided indication for this examination in Epic:Unable To Locate IUD String TECHNIQUE: Pelvic Ultrasound Transvaginal performed for detailed imagingof the endometrium and/or adnexa. COMPARISON: None available FINDINGS: Uterus: Size: 6.3 x 3.0 x 3.9 cm. Anteverted Myometrium: Homogeneous Endometrium: Homogeneous Thickness: 6 mm. IUD is appropriately positioned Right adnexa: Ovary: The right ovary measures 5.4 x 4.0 x 5.0 cm, containing a complexcystic lesion measuring 4.8 x 3.7 x 4.5 cm. Left adnexa: Ovary: The left ovary is not visualized. The study was terminated earlydue to patient discomfort. Free fluid: No significant free fluid. IMPRESSION: 1. Complex cystic lesion in the right ovary measuring up to 4.8 cm withinternal echoes without internal vascularity. The differential ishemorrhagic cyst, but other etiologies are possible. Gynecology managementand follow-up recommended. Short- term follow-up ultrasound in 8-12 weeksor as clinically appropriate is recommended. Pelvic MRI could also beconsidered. 2. The left ovary is not imaged as the study was stopped early due topatient discomfort. 3. The IUD is appropriately positioned. A clinically significant result was initiated on 05/18/2024 4:02 PM,Message ID [id number]. Lotus Martinez MD IMG US PELVIS * Chlamydia Trachomatis and Neisseria Gonorrhoeae Nucleic Acid Detection (03/22/2024 4:23 PM EDT) CHLAMYDIA TRACHOMATIS Not Detected Not Detected [facility] NEISERIA GONORRHOEAE Not Detected Not Detected [facility] SPECIMEN TYPE ENDOCERVICAL HEADER MACHINE OPERATOR [facility] Other (Endocervical) 03/22/2024 4:23 PM EDT 03/22/2024 6:08 PM EDT Lotus Martinez MD NON CULTURE MICROBIO LOGY [facility] [address] [place] [address] from Last 3 Months or Most Recently Relevant to Health Maintenance Care Teams Professor Of Business Relationship Specialty Start Date End Date mOar Floyd NP [address] [place] [address] PCP - General Nurse Practitioner 03/22/24 Additional Source Comments The information contained in this document represents components of the legal health record. It is not the complete legal health record.[facility]
--- OUTSIDE RECORDS SUMMARY | 2024-07-10 14:41 | XMS_ITS | Encounter Summary ---
Author Organization [facility] Address [phone] [place] [address] Care Team Providers Care Corporate Bond Trader Name Role Phone Karen Hallman MD Primary Care Provider [phone] Omar Floyd NP Primary Care Provide r Encounter Details Date Type Department Care Team (Latest Contact Info) Description 03/05/2019 Transcribe Orders [address] [place] [address] Karen Mg NP [address] [place] [address] [address] [place] [address] Right lower quadrant pain (Primary Dx) Social History Tobacco Use Types Packs/Day Years [...] documented as of this encounter Results * (ABNORMAL) C-Reactive Protein (03/05/2019 10:39 AM EDT) C REACTIVE PROTEIN 7.1(H) 0.0 - 4.0 mg/L [facility] Blood 03/05/2019 10:3 9 AM EDT 03/05/2019 10:41 AM EDT Karen Salander [employer] LAB BLOOD ORDERABLE S [facility] [address] [place] [address] * CBC and differential (03/05/2019 10:39 AM EDT) WBC 6.76 3.40 - 11.20 K/uL [facility] RBC 4.19 3.80 - 4.80 M/uL [facility] HGB 12.5 12.0 - 15.0 g/dL [facility] HCT 37.1 36.0 - 46.0 % [facility] PLT 189 130 - 400 K/uL [facility] MCV 88.5 79.0 - 98.0 fL [facility] MCH 29.8 25.0 - 35.0 pg [facility] MCHC 33.7 31.0 - 37.0 g/dL [facility] RDW 12.1 10.8 - 14.6 % [facility] MPV 10.8 9.4 - 12.4 fl [facility] NRBC 0.00 0.00 /100 WBCs [facility] ABSOLUTE NRBC 0.00 0.00 K/uL [facility] DIFF METHOD Auto [facility] NEUTS 74.2 45.30 - 77.70 % [facility] LYMPHS 15.2 12.30 - 39.70 % [facility] MONOS 8.4 4.10 - 12.80 % [facility] EOS 1.5 0 - 7.2 % [facility] BASOS 0.6 0 - 2.80 % [facility] Granulocytes, immature (%) 0.1 0.0 - 0.9 % [facility] ABSOLUTE NEUTS 5.01 1.40 - 7.70 K/uL [facility] ABSOLUTE LYMPHS 1.03 0.60 - 3.20 K/uL [facility] ABSOLUTE MONOS 0.57 0.11 - 0.59 K/uL [facility] ABSOLUTE EOS 0.10 0.01 - 0.50 K/uL [facility] ABSOLUTE BASOS 0.04 0.00 - 0.08 K/uL [facility] Granulocytes, immature 0.01 0.00 - 0.05 K/uL [facility] Blood 03/05/2019 10:3 9 AM EDT 03/05/2019 10:41 AM EDT Karen Mg [employer] LAB BLOOD ORDERABLE S [address] [address] documented in this encounter Visit Diagnoses Diagnosis Right lower quadrant pain- Primary documented in this encounter Care Teams Corporate Bond Trader Relationship Specialty Start Date End Date Karen Hallman MD [address] [place] [address] PCP - General Pediatrics 03/05/19 03/21/24 Omar Floyd NP [address] [place] [address] PCP - General Nurse Practitioner 03/22/24 documented as of this encounter Additional Source Comments The information contained in this document represents components of the legal health record. It is not the complete legal health record.[facility]
[2024-07-10 14:52] LABS: Basophils Percent Auto 0.2 % (0-2); Eosinophils Percent Auto 0.2 % (0-4); Hemoglobin 14.2 g/dl (12.0-16.0); Imm Gran Abs Auto 0.09 X10*3/uL (0.00-0.03); Imm Gran Pct Auto 1.1 % (0.0-0.4); Lymphocytes Absolute Auto 0.9 X10*3/uL (1.2-4.9); Lymphocytes Percent Auto 11.7 % (20-40); MANUAL DIFF FLAG NO; Mean Corpuscular HGB Conc 34.6 g/dl (31.0-35.0); Mean Corpuscular Hemoglobin 31.4 pg (27.0-33.0); Mean Corpuscular Volume 90.7 fL (80.0-98.0); Monocytes Absolute Auto 0.3 X10*3/uL (0.1-1.2); Monocytes Percent Auto 4.2 % (2-11); Neutrophils Absolute Auto 6.6 x10*3/uL (2.0-8.3); Neutrophils Percent Auto 82.6 % (45-73); Platelet Count 188 X10*3/uL (160-400); Red Blood Count 4.52 X10*6/uL (4.20-5.50); Red Cell Distribution Width 11.7 % (11.0-16.0)
[2024-07-10 14:57] LABS: Prothrombin Time 11.6 SEC (10.9-12.4)
[2024-07-10 15:16] VITALS: BP 114/80; PULSE 73; RESP 16; TEMP 36.7; O2SAT 100
[2024-07-10 15:24] LABS: Alanine Aminotransferase 20 U/L (0-31); Albumin Level 4.6 g/dL (3.5-5.0); Anion Gap 13 (12-20); Aspartate Amino Transferase 34 U/L (5-31); Bilirubin Total 0.6 mg/dL (0.0-1.0); Blood Urea Nitrogen 7 mg/dL (9-16); Calcium 9.5 mg/dL (8.4-10.2); Carbon Dioxide 26 mmol/L (22-29); Chloride 108 mmol/L (96-108); Creatinine Clr Calc Pharmacy 93.4; Estimated Glomerular Filt Rate > 60; Glucose Random 80 mg/dL (60-115); HCG Quantitative < 2 mIU/mL; Potassium 3.5 mmol/L (3.3-5.1); Sodium 143 mmol/L (135-145); Total Protein 7.9 g/dL (6.5-8.0)
[2024-07-10] MEDS: Ketorolac Tromethamine 30 MG/ML VIAL IM (16:32)
[2024-07-10] MEDS: Lidocaine 4 % Patch ADH..PATCH 1 PATCH TRANSDERMA (16:32)
[2024-07-10 17:14] LABS: Alkaline Phosphatase 38 U/L (39-117)
[2024-07-10 18:25] VITALS: BP 101/63; PULSE 72; RESP 20; TEMP 36.3; O2SAT 98
--- NOTE | 2024-07-10 20:09 | PC.NURSE ---
assumed care for this pt 0. Pt a&o x 4 speaking in full clear sentences reporting 4/10 pain. updated pt with plan. Did ambulation tril with pt and pt tolerated walking well. plan of care ongoing
[2024-07-10 20:55] VITALS: BP 107/71; BP 109/61; BP 109/72; PULSE 70; PULSE 86; PULSE 92
[2024-07-10] MEDS: oxyCODONE HCl Immed Release 5 MG TABLET PO (21:48)
--- NOTE | 2024-07-10 21:52 | PC.NURSE ---
RN previously to bedside for initial DC, at which time the pt was found sitting in a chair conversing freely with father at bedside. RN reviewed discharge instructions thoroughly with patient and father while she text on the cell phone. At the completion of the dc review the pt reported feeling faint and needed to sit down. She was returned to bed, FAB[employer]ICATOR [employer]CE made aware and orthos provided. Dr Rowland was over to the bedside to speak with patient and her father as patient seems hesitant with dc plan. F[employer]IC[employer] FURNACE added new dc scripts and RN to bedside to review, father and patient report waiting for PO medication for pain although nothing is ordered. Dr Rowland consulted and pt medicated per MAR for pain. SHe was offered a wheelchair at dc but declined
[2024-07-10 21:55] VITALS: BP 109/72; PULSE 92; RESP 18; TEMP 36.9
== END 2024-07-10 21:56 | disposition home or self-care (01) ==
PROVIDERS: Physician Assistant Medical; Emergency Provider Emergency Medicine Emergency Medical Services
DX: S22.089A Unspecified fracture of T11-T12 vertebra, initial encounter for closed fracture (principal); S32.16XA Type 3 fracture of sacrum, initial encounter for closed fracture; R10.2 Pelvic and perineal pain; M54.50 Low back pain, unspecified; V80.010A Animal-rider injured by fall from or being thrown from horse in noncollision accident, initial encounter; Y93.9 Activity, unspecified; Y92.89 Other specified places as the place of occurrence of the external cause; Y99.8 Other external cause status; Z79.899 Other long term (current) drug therapy
CPT/HCPCS: 36415; 72131; 73502; 80053; 84702; 85025; 85610; 96372; 99284; J1885

== ENCOUNTER → 2024-07-10 13:22 | Outpatient (BNV) | payer BC, SELFPAY | PROVIDERS: Emergency Provider Emergency Medicine; Visit Provider Nuclear Medicine | DX: S22.080A Wedge compression fracture of T11-T12 vertebra, initial encounter for closed fracture (principal); M25.551 Pain in right hip | CPT/HCPCS: 72131; 73502 ==